=== PATIENT | female | born 1950 | race African-American/Black ===

== ENCOUNTER 2017-03-26 12:43 | Emergency (ER) | payer MEDICARE ==
--- NOTE | ~2017-03-26 | CR206 ---
[facility] A Service of [facility] RADIOLOGY TEXT RESULTS PATIENT: CARLOS DARDEN LOCATION: [facility] : 46 UNIT #: [id number] AGE: [address]: Laci Harmon MD SEX: F ORDER DR: [id number] [facility] [address] [place], [place] [address] [id number] MR#: [id number] #: [id number] NAME: CARLOS DARDEN. : 1950 SEX: F STUDY DATE/TIME: 03/26/2017 14:05 UNIT: [facility] ROOM: STUDY DESCRIPTION: CR Pelvis 1 or 2 Views Attending Physician: Orion Harmon M.D. Ordering Physician: Ed Doctor [id number] [facility] Primary Care Physician: Swetha HughesPCasper MEDICAL IMAGING REPORT This report is preliminary unless electronic signature is present EXAM AP pelvis HISTORY Pelvic pain, right leg and groin pain for 1 week. No injury. FINDINGS AP radiograph of the pelvis demonstrates normal bone alignment. No fracture is identified. Bone detail of the sacrum is limited by overlying bowel contents. Mild generalized demineralization. Mild degenerative changes in the hips and pubic symphysis. IMPRESSION No acute findings are identified. Mild degenerative changes in the hips and in the pubic symphysis. Dictated by... Jonathan Donohue M.D. THIS IS AN ELECTRONICALLY VERIFIED REPORT Jonathan Donohue M.D. at 03/26/2017 10:45 PM CARL/genet TD: 03/26/2017 16:06 JOB #: [id number] MEDICAL IMAGING REPORT Page 1 of 1 COPY
[~2017-03-26 12:43] MED LIST: LOTREL; NAPROXEN PO; SKELAXIN PO
== END 2017-03-26 15:35 | disposition home or self-care (01) ==
LOC: CED 12:43
DX: M77.9 Enthesopathy, unspecified (principal); E78.5 Hyperlipidemia, unspecified; I10 Essential (primary) hypertension; Z98.890 Other specified postprocedural states
CPT/HCPCS: 72170; 99283

== ENCOUNTER 2017-06-19 08:21 | Emergency (ER) | payer MEDICARE ==
[~2017-06-19] VITALS: Ht 157.5 cm; Wt 73.5 kg
[2017-06-19 09:21] LABS: BASOPHIL# 0.1 X10e3 (0-0.3); BASOPHIL% 1.1 % (0-2.5); EOSINOPHIL% 0.8 % (0.0-7.0); HEMATOCRIT 35.2 % (35.0-45.0); HEMOGLOBIN 11.9 gm/dL (12.0-16.0); LYMPHOCYTE# 1.4 X10e3 (1.0-3.5); LYMPHOCYTE% 27.7 % (17.0-45.0); MEAN CELL VOLUME 89.5 FL (83-96); MEAN CORPUSCULAR HEMOGLOBIN 30.3 PG (28-34); MEAN CORPUSCULAR HGB CONC 33.8 g/dL (30-36); MONOCYTE# 0.4 X10e3 (0-1.0); MONOCYTE% 6.9 % (3.0-12.0); NEUTROPHIL# 3.3 X10e3 (1.5-7.1); NEUTROPHIL% 63.5 % (40-75); PLATELET COUNT 264 X10e3 (140-420); RED BLOOD COUNT 3.94 X10e (3.90-5.30); RED CELL DISTRIBUTION WIDTH 13.5 % (11.0-15.5); WHITE BLOOD COUNT 5.2 X10e3 (4.0-10.5)
[2017-06-19 09:25] LABS: DIFF IND NO
[2017-06-19 09:49] LABS: BUN/CREATININE RATIO 17.14; CALCIUM SERUM 9.1 mg/dL (8.4-10.2); CREATININE SERUM 1.4 mg/dL (0.6-1.4); GLOM FILT RATE Estimated 44.6 mL/min (>60); POTASSIUM 4.7 mmol/L (3.5-5.1)
== END 2017-06-19 12:05 | disposition home or self-care (01) ==
LOC: CED 08:21
PROVIDERS: Emergency Medicine
DX: T78.3XXA Angioneurotic edema, initial encounter (principal); I10 Essential (primary) hypertension; Z79.899 Other long term (current) drug therapy
CPT/HCPCS: 36415; 80048; 85025; 96374; 96375; 99283; J1200; J2930